=== PATIENT | male | born 1970 | race Caucasian/White ===

== ENCOUNTER → 2021-07-29 16:46 | Outpatient (CLI) | payer SELFPAY ==
[2021-07-29 17:27] LABS: Hematocrit 45.7 % (42.0-52.0)
[2021-07-29 18:41] LABS: Anion Gap 12.7 mEq/L (5-15); Blood Urea Nitrogen 23 mg/dl (9-20); Calcium 8.8 mg/dl (8.4-10.2); Carbon Dioxide 25 mmol/L (22.0-30.0); Chloride 102 mmol/L (98-107); Estimated Glomerular Filt Rate 70 ml/min (>60); GFR (African American) 85 ML/MIN (>60); Glucose 116 mg/dl (74-100); Potassium 3.7 mmoL/L (3.5-5.1); Sodium 136 mmol/L (136-145)
== END ==
LOC: LAB.DROPOF 16:48
PROVIDERS: Visit Provider Internal Medicine
DX: Z01.812 Encounter for preprocedural laboratory examination (principal); I10 Essential (primary) hypertension
CPT/HCPCS: 80048; 85014